=== PATIENT | male | born 1945 | race Caucasian/White ===

== ENCOUNTER 2023-11-17 20:20 | Inpatient (IN) | payer MEDICARE, MEDICAID ==
[~2023-11-17] VITALS: Ht 167.6 cm; Wt 78.0 kg
[2023-11-18 00:02] LABS: CLARITY URINE CLEAR (CLEAR); COLOR URINE YELLOW (YELLOW); GLUCOSE URINE TRACE (NEGATIVE); KETONES URINE TRACE (NEGATIVE); LEUKOCYTE ESTERASE URINE NEGATIVE (NEGATIVE); NITRITE URINE NEGATIVE (NEGATIVE); OCCULT BLOOD URINE TRACE (NEGATIVE); PH URINE 5.5 (4.5-8.0); PROTEIN URINE 1+ (NEGATIVE); SPECIFIC GRAVITY URINE 1.032 (1.005-1.030); UROBILINOGEN URINE 0.2 E.U./dL (0.2-1.0)
[2023-11-18 00:22] LABS: HEMATOCRIT. 39.1 % (42.0-52.0); HEMOGLOBIN. 13.4 g/dL (14.0-18.0); MEAN CORPUSCULAR HEMOGLOBIN 33.1 pg (28.0-32.0); MEAN CORPUSCULAR HGB CONC 34.4 g/dL (31.0-37.0); MEAN CORPUSCULAR VOLUME 96.2 fL (80.0-94.0); PLATELET 194 x1000/uL (130-400); RED BLOOD CELL COUNT 4.06 mill/uL (4.7-6.1); RED CELL DISTRIBUTION WIDTH 13.1 % (11.6-14.6); WHITE BLOOD COUNT 11.5 x1000/uL (4.5-11.0)
[2023-11-18 00:24] LABS: DIFFERENTIAL COMMENT 1
[2023-11-18 00:41] LABS: ALANINE AMINOTRANSFERASE 13 IU/L (10-49); ALBUMIN 4.6 g/dL (3.2-4.8); ASPARTATE AMINOTRANSFERASE 17 IU/L (<34); BILIRUBIN TOTAL 0.5 mg/dL (0.1-1.0); CALCIUM 8.8 mg/dL (8.7-10.4); CARBON DIOXIDE 26 mEq/L (21-32); CHLORIDE 104 mEq/L (98-107); CREATININE 0.8 mg/dL (0.6-1.3); GLUCOSE 119 mg/dL (70-105); POTASSIUM 4.3 mEq/L (3.5-5.1); PROTEIN TOTAL 7.4 g/dL (6.0-8.3); SODIUM 135 mEq/L (136-145); UREA NITROGEN BLOOD 25 mg/dL (9-23)
[2023-11-18 02:01] LABS: INR 0.9; PROTHROMBIN TIME 10.6 sec (9.6-11.0)
[2023-11-18 02:18] LABS: ALANINE AMINOTRANSFERASE 12 IU/L (10-49); ALBUMIN 4.6 g/dL (3.2-4.8); ASPARTATE AMINOTRANSFERASE 18 IU/L (<34); BILIRUBIN TOTAL 0.5 mg/dL (0.1-1.0); CALCIUM 8.9 mg/dL (8.7-10.4); CARBON DIOXIDE 25 mEq/L (21-32); CHLORIDE 104 mEq/L (98-107); CREATININE 0.8 mg/dL (0.6-1.3); GLUCOSE 114 mg/dL (70-105); POTASSIUM 4.2 mEq/L (3.5-5.1); PROTEIN TOTAL 7.4 g/dL (6.0-8.3); SODIUM 135 mEq/L (136-145); TROPONIN I HIGH SENSITIVITY 8 ng/L (3.0-53); UREA NITROGEN BLOOD 26 mg/dL (9-23)
[2023-11-18 02:22] LABS: ETHANOL BLOOD < 10 mg/dL (<10)
[2023-11-18 03:03] LABS: SQUAMOUS EPITHELIAL CELL URINE FEW /lpf (RARE/1+)
[2023-11-18 03:04] LABS: BACTERIA URINE NONE SEEN; RBC URINE 0-2 /hpf (0-2); WBC URINE 0-2 /hpf (0-2)
[2023-11-18] MEDS: SODIUM CHLORIDE 0.9% 500 ML IV ONE (05:20)
[2023-11-18 05:51] LABS: PLATELET ESTIMATE NORMAL
[2023-11-18] MEDS ORDERED: ACETAMINOPHEN 325MG TABLET PO PRN ×2 (08:30)
[2023-11-18] MEDS ORDERED: DOCUSATE SODIUM 100MG CAPSULE PO PRN (08:30)
[2023-11-18] MEDS ORDERED: KETOROLAC 15MG/ML VIAL IV PRN (08:30)
[2023-11-18] MEDS ORDERED: MAGNESIUM/ALUMINUM HYDROXIDE/SIMETHICONE 30ML UDC PO PRN (08:30)
[2023-11-18] MEDS ORDERED: GUAIFENESIN 200MG/10ML SUGAR FREE UDC PO PRN (08:30)
[2023-11-18] MEDS ORDERED: ONDANSETRON HCL 4MG/2ML INJ IV PRN (08:30)
[2023-11-18] MEDS ORDERED: IPRATROPIUM/ALBUTEROL 0.5-3(2.5)MG/3ML NEB NEB PRN (08:30)
[2023-11-18] MEDS ORDERED: CLONIDINE 0.1MG TABLET PO PRN (08:30)
[2023-11-18] MEDS ORDERED: NITROGLYCERIN 0.4MG TABLET SL SL PRN (09:00)
[2023-11-18 09:24] LABS: CHOLESTEROL 180 mg/dL (<200); HDL CHOLESTEROL 65 mg/dL (>55); IRON 24 ug/dL (65-175); LDL CHOLESTEROL 89 mg/dL (5-100); THYROID STIMULATING HORMONE 0.59 uIU/mL (0.55-4.78); TOTAL IRON BINDING CAPACITY 210 ug/dl (250-425); TRIGLYCERIDE 72 mg/dL (0-150)
[2023-11-18 09:27] LABS: FOLIC ACID (FOLATE) SERUM > 20.00 ng/mL (>5.38); VITAMIN B12 SERUM 358 pg/mL (211-911)
[2023-11-18] MEDS: ZINC SULFATE 220 MG ( 50 ) CAPSULE PO SCH (09:32)
[2023-11-18] MEDS: ENOXAPARIN 40MG/0.4ML SYR SUBCUT SCH (09:32)
[2023-11-18] MEDS: PANTOPRAZOLE SODIUM 40 MG/VIAL IV SCH (09:32)
[2023-11-18 10:00] VITALS: BP 152/70; PULSE 76; RESP 18; TEMP 99
[2023-11-18 12:00] VITALS: BP 148/65; PULSE 74; RESP 19; TEMP 97.5
[2023-11-18] MEDS: CARBIDOPA/LEVODOPA 25/100MG TABLET PO SCH (14:00)
[2023-11-18 15:33] LABS: CREATINE KINASE MB FRACTION 2.4 ng/mL (0.5-3.6)
[2023-11-18 16:00] VITALS: BP 136/62; PULSE 70; RESP 18; TEMP 97.1
[2023-11-18] MEDS: ASCORBIC ACID 500 MG TABLET PO SCH (16:14)
[2023-11-18 20:00] VITALS: BP 124/64; PULSE 71; RESP 18; TEMP 97.9
[2023-11-18] MEDS ORDERED: ZOLPIDEM TARTRATE 5MG TABLET PO PRN (21:00)
[2023-11-18] MEDS: ATORVASTATIN CALCIUM 40MG TABLET PO SCH (21:21)
[2023-11-19] VITALS: BP 148/61; PULSE 62; RESP 18; TEMP 97.7
[2023-11-19 00:40] LABS: CREATINE KINASE MB FRACTION 1.9 ng/mL (0.5-3.6)
[2023-11-19 04:00] VITALS: BP 148/58; PULSE 60; RESP 18; TEMP 97.2
[2023-11-19 07:31] LABS: HEMATOCRIT. 37.4 % (42.0-52.0); HEMOGLOBIN. 12.8 g/dL (14.0-18.0); MEAN CORPUSCULAR HEMOGLOBIN 33.4 pg (28.0-32.0); MEAN CORPUSCULAR HGB CONC 34.4 g/dL (31.0-37.0); MEAN CORPUSCULAR VOLUME 97.2 fL (80.0-94.0); MEAN PLATELET VOLUME 8.6 fl (7.4-10.4); PLATELET 167 x1000/uL (130-400); RED BLOOD CELL COUNT 3.84 mill/uL (4.7-6.1); WHITE BLOOD COUNT 5.4 x1000/uL (4.5-11.0)
[2023-11-19 07:49] LABS: DIFFERENTIAL COMMENT 1
[2023-11-19 07:51] LABS: ALANINE AMINOTRANSFERASE < 7 IU/L (10-49); ASPARTATE AMINOTRANSFERASE 18 IU/L (<34); BILIRUBIN TOTAL 0.5 mg/dL (0.1-1.0); CALCIUM 8.3 mg/dL (8.7-10.4); CARBON DIOXIDE 26 mEq/L (21-32); CHLORIDE 105 mEq/L (98-107); CREATININE 0.7 mg/dL (0.6-1.3); GLUCOSE 94 mg/dL (70-105); PHOSPHORUS 2.1 mg/dL (2.5-4.9); PROTEIN TOTAL 6.4 g/dL (6.0-8.3); SODIUM 135 mEq/L (136-145); UREA NITROGEN BLOOD 17 mg/dL (9-23)
[2023-11-19 08:00] VITALS: BP 130/54; PULSE 61; RESP 16; TEMP 97.2
[2023-11-19 09:05] LABS: PLATELET ESTIMATE NORMAL
[2023-11-19 12:00] VITALS: BP 142/59; PULSE 74; RESP 18; TEMP 97.4
[2023-11-19] MEDS: ASPIRIN 325MG EC TABLET PO SCH (15:15)
[2023-11-19 16:00] VITALS: BP 160/71; PULSE 68; RESP 17; TEMP 98
[2023-11-19 20:00] VITALS: BP 146/71; PULSE 71; RESP 20; TEMP 97.7
[2023-11-20] VITALS: BP 138/59; PULSE 70; RESP 20; TEMP 97.5
[2023-11-20 04:00] VITALS: BP 169/64; PULSE 104; RESP 20; TEMP 97.5
[2023-11-20 08:00] VITALS: BP 136/64; PULSE 60; RESP 19; TEMP 97.4
[2023-11-20 08:07] LABS: AMMONIA < 17 uMol/L (<32)
[2023-11-20] MEDS: FAMOTIDINE 20MG/2ML VIAL IV SCH (10:02)
[2023-11-20 12:00] VITALS: BP 130/79; PULSE 67; RESP 18; TEMP 97.4
[2023-11-20 16:00] VITALS: BP 122/47; PULSE 66; RESP 17; TEMP 97.4
[2023-11-20 20:00] VITALS: BP 132/56; PULSE 78; RESP 18; TEMP 97.5
[2023-11-21] VITALS: BP 155/65; PULSE 63; RESP 18; TEMP 96.6
[2023-11-21 04:00] VITALS: BP 169/78; PULSE 70; RESP 18; TEMP 96.5
[2023-11-21 08:00] VITALS: BP 142/68; PULSE 68; RESP 18; TEMP 98.6
[2023-11-21 12:00] VITALS: BP 137/72; PULSE 71; RESP 19; TEMP 97.7
[2023-11-21] MEDS: SODIUM PHOSPHATE 20 MMOL in DEXT 5% WATER 243.3333 ML IV NR (13:44)
[2023-11-21 14:53] VITALS: BP 137/72; PULSE 71; TEMP 97.7; O2SAT 97
== END 2023-11-21 15:22 | DRG 551 ==
LOC: ER 20:20 → 6EST 11-18 05:41
PROVIDERS: ADMIT Internal Medicine; ATTEND Internal Medicine
DX: M48.061 Spinal stenosis, lumbar region without neurogenic claudication (principal); G82.50 Quadriplegia, unspecified; E87.1 Hypo-osmolality and hyponatremia; D72.825 Bandemia; G20.A1 Parkinson's disease without dyskinesia, without mention of fluctuations; D63.8 Anemia in other chronic diseases classified elsewhere; E78.00 Pure hypercholesterolemia, unspecified; I10 Essential (primary) hypertension; M47.812 Spondylosis without myelopathy or radiculopathy, cervical region; E83.39 Other disorders of phosphorus metabolism; E83.51 Hypocalcemia; Z79.899 Other long term (current) drug therapy
CPT/HCPCS: 36415; 70551; 71045; 72141; 72146; 72148; 80053; 80061; 80320; 81003; 82140; 82550; 82553; 82607; 82746; 83036; 83540; 83550; 83605; 83735; 83880; 84100; 84145; 84439; 84443; 84484; 85025; 93005; 93306; 93970; 97110; 97112; 97116; 97162; 97166; 97530; 97535; 99285; C9113; J1650; J3490; J7040; J7060; G0480

== ENCOUNTER 2024-12-21 19:40 | Emergency (ER) | payer MEDICAID, MEDICARE ==
[~2024-12-21] VITALS: Ht 175.3 cm; Wt 81.0 kg
[~2024-12-21 19:40] MED LIST: ASCO500T20 PO; ASPI-867 PO; CARB-32 MT; CYAN-33 MT; ERGO50CA PO; FAMO20TA8 PO; LIP40 PO
[2024-12-21 20:00] VITALS: O2SAT 98
[2024-12-21 20:44] LABS: HEMATOCRIT. 37.5 % (42.0-52.0); HEMOGLOBIN. 12.7 g/dL (14.0-18.0); MEAN CORPUSCULAR HEMOGLOBIN 31.9 pg (28.0-32.0); MEAN CORPUSCULAR HGB CONC 33.9 g/dL (31.0-37.0); MEAN CORPUSCULAR VOLUME 94.2 fL (80.0-94.0); MEAN PLATELET VOLUME 7.6 fl (7.4-10.4); PLATELET 250 x1000/uL (130-400); RED BLOOD CELL COUNT 3.98 mill/uL (4.7-6.1); RED CELL DISTRIBUTION WIDTH 12.5 % (11.6-14.6); WHITE BLOOD COUNT 10.7 x1000/uL (4.5-11.0)
[2024-12-21 20:46] LABS: DIFFERENTIAL COMMENT 1
[2024-12-21 20:50] LABS: CARBON DIOXIDE 26 mEq/L (21-32); CHLORIDE 103 mEq/L (98-107); POTASSIUM 4.4 mEq/L (3.5-5.1); SODIUM 136 mEq/L (136-145)
[2024-12-21 20:51] LABS: CALCIUM 9.5 mg/dL (8.7-10.4)
[2024-12-21 20:56] LABS: GLUCOSE 122 mg/dL (70-105); UREA NITROGEN BLOOD 22 mg/dL (9-23)
[2024-12-21 21:17] LABS: PLATELET ESTIMATE NORMAL
[2024-12-21 21:21] LABS: CLARITY URINE CLOUDY (CLEAR); COLOR URINE DARK YELLOW (YELLOW); GLUCOSE URINE NEGATIVE (NEGATIVE); KETONES URINE TRACE (NEGATIVE); LEUKOCYTE ESTERASE URINE 1+ (NEGATIVE); NITRITE URINE NEGATIVE (NEGATIVE); OCCULT BLOOD URINE 3+ (NEGATIVE); PROTEIN URINE 3+ (NEGATIVE); SPECIFIC GRAVITY URINE 1.024 (1.005-1.030)
[2024-12-21 21:39] VITALS: BP 138/62; PULSE 72; RESP 18; TEMP 37; O2SAT 100
[2024-12-21 21:50] LABS: BACTERIA URINE 3+; RBC URINE TNTC /hpf (0-2); SQUAMOUS EPITHELIAL CELL URINE FEW /lpf (RARE/1+)
[2024-12-21] MEDS ORDERED: CEFP200T14 MT (22:02)
== END 2024-12-21 22:36 | disposition home or self-care (01) ==
LOC: ER 19:40
DX: N39.0 Urinary tract infection, site not specified (principal); R33.8 Other retention of urine; N40.1 Benign prostatic hyperplasia with lower urinary tract symptoms; E78.00 Pure hypercholesterolemia, unspecified; I10 Essential (primary) hypertension; Z79.82 Long term (current) use of aspirin; Z79.899 Other long term (current) drug therapy
CPT/HCPCS: 36415; 51702; 80048; 81003; 85025; 99284